=== PATIENT | male | born 1980 | race Caucasian/White ===

== ENCOUNTER → 2024-12-26 | Outpatient (CLI) | payer BC, SELFPAY ==
--- NOTE | 2024-12-26 10:47 | XR_ITS ---
Examination: Cervical spine 3 views Technique one AP lateral coned AP odontoid cervical spine 3 views Exam date and time: December 26, 2024 1105 hours INDICATIONS: Left-sided neck pain radiating to the left shoulder beginning 5 years ago getting worse. FINDINGS: Adequate alignment cervical vertebral bodies. No cervical fracture. Intact odontoid Moderate disc narrowing C6-C7 IMPRESSION: No cervical fracture Moderate disc narrowing C6-C7
== END | disposition home or self-care (01) ==
PROVIDERS: PCP Nurse Practitioner Family; Referring Provider Nurse Practitioner Family; Visit Provider Nurse Practitioner Family
DX: M48.02 Spinal stenosis, cervical region (principal)
CPT/HCPCS: 72040

== ENCOUNTER 2025-07-30 19:36 | Emergency (ER) | payer BC, SELFPAY ==
[2025-07-30 19:39] VITALS: BP 120/80; PULSE 78; RESP 19; TEMP 36.6; O2SAT 95; BMI 29.8
[2025-07-30 19:50] VITALS: PULSE 82; RESP 20; O2SAT 99; BMI 65.8
[2025-07-30 20:03] VITALS: BP 125/91; PULSE 85; RESP 19; TEMP 36.6; O2SAT 97
--- NOTE | 2025-07-30 20:04 | PD.EDNV ---
Nausea/Vomit./Diarrhea-RME/HPI General Chief complaint: Nausea/Vomiting/Diarrhea Stated complaint: NAUSEA VOMITING Time Seen by Provider: 07/30/25 20:06 Arrival date/time: 07/30/25 19:36 RME / HPI RME / HPI Narrative: See MDM for Dr. Gonzales's HPI documentation. Related Data Allergies Allergy/AdvReac Type Severity Reaction Status Date / Time No Known Allergies Allergy Verified 07/30/25 19:50 Review of Systems Review of Systems Systems Reviewed: All systems reviewed, normal except as documented Past Medical History Social History SMOKING STATUS: Never smoker ED Exam Narrative Physical exam: See MDM for Dr. Gonzales's physical exam documentation. Course Quality Measures none Orders Category Date Time Status Bedside COVID-19 Antigen Test NOW Care 07/30/25 20:06 Active Bedside Influenza A&B Antigen Test NOW Care 07/30/25 20:06 Completed EKG (ED ONLY) *Do not use* NOW Care 07/30/25 20:07 Completed MRI Screening NOW Care 07/31/25 01:24 Active Miscellaneous Nursing Order NOW Care 07/31/25 00:06 Active Saline [Insert IV] NOW Care 07/30/25 20:[address] head/brain wo con Stat Exams 07/30/25 20:07 Completed EKG (ED Only) Stat Exams 07/30/25 20:07 Ordered MR head/brain wo con Stat Exams 07/31/25 Ordered XR chest 1V portable Stat Exams 07/30/25 20:07 Completed Alcohol, Blood Medical Stat Lab 07/30/25 20:09 Completed Bilirubin,Direct Stat Lab 07/30/25 20:09 Completed CBC Stat Lab 07/30/25 20:09 Completed CMP [Comprehensive Metabolic Panel] Stat Lab 07/30/25 20:09 Completed Drug Screen,Urine Stat Lab 07/30/25 22:34 Completed Magnesium Stat Lab 07/30/25 20:09 Completed TSH [Thyroid Stimulating Hormone] Stat Lab 07/30/25 20:09 Completed Troponin I Stat Lab 07/30/25 20:09 Completed UA, C/S IF [Urinalysis, C/S if Indicated] Stat Lab 07/30/25 22:34 Completed Diazepam Inj [Valium Inj] Med 07/31/25 02:07 Discontinued 5 mg IVP X1 ONE KCL 10% Liq UDC 15 ML Med 07/30/25 21:40 Discontinued 40 meq PO X1 ONE Meclizine HCl [Antivert] Med 07/30/25 20:06 Discontinued 25 mg PO X1 ONE Ondansetron Inj [Zofran Inj] Med 07/30/25 20:06 Discontinued 4 mg IVP X1 ONE Ondansetron Inj [Zofran Inj] Med 07/31/25 02:07 Discontinued 4 mg IVP X1 ONE Ringers Lactated 1000 ml [Lactated Ringers] 1,000 ml Med 07/30/25 22:04 Discontinued IV 1,000 mls/hr Ringers Lactated 1000 ml [Lactated Ringers] 1,000 ml Med 07/31/25 02:07 Active IV 200 mls/hr Scopolamine [Transderm-Scop Patch] Med 07/30/25 20:06 Discontinued 1 mg TOP X1 ONE Sodium Chloride 0.9% 1000 ml [Ns] 1,000 ml Med 07/30/25 20:06 Discontinued IV 999 mls/hr Vital Signs Vital signs: Vital Signs Temperature 97.9 F 07/30/25 19:39 Pulse Rate 78 07/30/25 19:39 Respiratory Rate 19 07/30/25 19:39 Blood Pressure 120/80 07/30/25 19:39 Pulse Oximetry (%) 95 07/30/25 19:39 Oxygen Delivery Method Room Air 07/30/25 19:39 Nausea/Vomiting/Diarrhea MDM Narrative MDM Narrative:: This section includes all my notes and documentations, including HPI, PE, and ED course. Laron Gonzales MD HPI: 44yo male BIBA here with dizziness, nausea, and vomiting for the last couple hours. Patient was working out when those symptoms started. Describes feeling drunk and seasick and passed out. Also reports feeling off balance when ambulating. No remarkable past medical history. No other complaints. ROS: All negative except as documented in HPI. Physical Exam: General:? Alert and oriented.? Appearance of severe malaise noted. Eyes:? Conjunctivae and lids clear.? EOMI.? PERRL. ENT:? No nasal congestion.? Pharynx normal.? Tympanic membrane normal bilaterally.??? Neck:? Supple.? No carotid bruit.? No JVD.?? Heart:? RRR.? Lungs:? No respiratory distress.? Good air movement.? No rhonchi, wheezing, rales.?? Abdomen:? Soft and nontender.? Normal bowel sounds.? No distension.? No rebound or guarding.?? Legs:? No clubbing, cyanosis, edema.? Skin:? Warm and dry.?? Neuro:? Alert and oriented X 3.? Cranial Nerves II-XII grossly intact.? No peripheral motor deficits. I reviewed EMS notes. I reviewed all diagnostic test results. My interpretation of the EKG is sinus rhythm with no ST-T changes. My interpretation of the chest x-ray is NAD. My review of the CT head report is NAD. Blood tests are unremarkable except for K 3.2. At this point, diagnoses include: Vertigo Ataxia Treatment here included: IV fluid and Zofran Meclizine 25 mg Scopolamine patch Oral KCl Pascual maneuver No improvement noted. I discussed the case with our teleneurologist. About the presentation and exam and diagnostics and treatments here. Recommended MRI imaging. Brain MRI ordered. More IV fluid and diazepam 5 mg IV ordered. At 6 AM on 07/31/2025, the care of the patient was transferred to Dr. Hermosillo. Laron Gonzales MD Patient data External records reviewed:: [facility] previous records (Per chart review, patient has no previous ED visits or admissions to this facility.) and EMS form Clinical information provided by:: patient Social determinants that could affect healthcare access:: none Patient has the following chronic illnesses:: none How is presenting disease/condition affected by chronic disease/condition?: no chronic disease Evaluation data The following diagnostics were reviewed and interpreted by me:: lab results, radiology exam(s) and EKG tracing(s) (My interpretation of the EKG: NSR (66 bpm) with no ST-T changes. Laron Gonzales MD) Lab and/or radiology exams considered but not ordered:: none Interpretation Summary: I reviewed all diagnostic test results. My interpretation of the EKG is sinus rhythm with no ST-T changes. My interpretation of the chest x-ray is NAD. My review of the CT head report is NAD. Blood tests are unremarkable except for K 3.2. Medications / Prescriptions Medications / Prescriptions considered but not ordered:: none Medication administrations:: Medication Administration History Lactated Ringer's (Lactated Ringers) 1,000 mls @ 200 mls/hr IV .Q5H ONE Stop: 07/31/25 07:06 Last Admin: 07/31/25 02:16 Dose: 200 mls/hr Documented By: DT Discontinued Medications Diazepam (Diazepam Inj 5 Mg/Ml Vial 2 Ml) 5 mg IVP X1 ONE Stop: 07/31/25 02:08 Last Admin: 07/31/25 02:21 Dose: 5 mg Documented By: DT Sodium Chloride (Ns) 1,000 mls @ 999 mls/hr IV .Q1H1M ONE Stop: 07/30/25 21:06 Last Infusion: 07/30/25 21:23 Dose: Infused Documented By: Admin: 07/30/25 20:22 Dose: 999 mls/hr Documented By: DT Lactated Ringer's (Lactated Ringers) 1,000 mls @ 1,000 mls/hr IV .Q1H ONE Stop: 07/30/25 23:03 Last Infusion: 07/30/25 23:57 Dose: Infused Documented By: Admin: 07/30/25 22:36 Dose: 1,000 mls/hr Documented By: DT Meclizine HCl (Meclizine Hcl 25 Mg Tablet) 25 mg PO X1 ONE Stop: 07/30/25 20:07 Last Admin: 07/30/25 20:20 Dose: 25 mg Documented By: DT Ondansetron HCl (Ondansetron Inj 2 Mg/Ml Inj 2 Ml) 4 mg IVP X1 ONE; Protocol Stop: 07/30/25 20:07 Last Admin: 07/30/25 20:23 Dose: 4 mg Documented By: DT Ondansetron HCl (Ondansetron Inj 2 Mg/Ml Inj 2 Ml) 4 mg IVP X1 ONE; Protocol Stop: 07/31/25 02:08 Last Admin: 07/31/25 02:14 Dose: 4 mg Documented By: DT Potassium Chloride (Potassium Chloride 10% 20 Meq/15 Ml Udc) 40 meq PO X1 ONE Stop: 07/30/25 21:41 Scopolamine (Scopolamine 1 Mg Tdsy) 1 mg TOP X1 ONE Stop: 07/30/25 20:07 Last Admin: 07/30/25 20:20 Dose: 1 mg Documented By: DT Treatment here included: IV fluid and Zofran Meclizine 25 mg Scopolamine patch Oral KCl Pascual maneuver No improvement noted. More IV fluid and diazepam 5 mg IV ordered. Consultations Consultation(s) initiated? (list below): No Diagnosis Nausea Differential Diagnosis: gastroenteritis, dehydration and other (CVA, TIA, vertigo, electrolyte abnormalities, psychogenic) Most likely diagnosis given after review of the tests above:: Vertigo and ataxia Admission Indicated Admission indicated?: not indicated Explain why admission is indicated or not indicated:: MRI imaging pending. Admission Request Was there a request for admission?: No Disposition Plan Disposition Plan: other (specify) (Signed out to Dr. Hermosillo at 6 AM.) Discharge Plan Prescriptions/Referrals Referrals: No Primary/Family,Physician [Primary Care Provider] - In 1 week Problem List Clinical Impression: Vertigo, Ataxia Patient/Caregiver Discharge Instructions Print Language: Irish
--- NOTE | 2025-07-30 20:07 | XR_ITS ---
Examination: AP chest single view. Technique: AP portable upright chest single view Date and time: July 30, 20252010 hrs. Indications: Nausea vomiting diarrhea shortness of breath today. Findings: Minor atelectasis left base Minor prominence left ventricle. No pneumonia or pulmonary edema. Impression: No pneumonia or pulmonary edema.
--- NOTE | 2025-07-30 20:07 | XR_ITS ---
Examination: CT brain head without contrast. 2-D sagittal coronal reconstructions Date and time of exam:July 30, 20252030 hrs. Indications: Syncopal episode today followed by headache and dizziness CTDI: vol (mGy):51.6. DLP: (mGycm):1000 Technique: Multiple CT axial sections of the brain have been obtained, 5 mm slice thickness. Contrast has not been administered. 2-D sagittal, coronal reconstructions have been obtained Low dose protocols were performed. One or more of the following dose reduction techniques were used; automated exposure control, adjustment of the mA and/or KV according to patient size, use of iterative reconstruction technique. Findings: No significant ventricular enlargement. Intra-axial or extra-axial hemorrhage density is not seen. No mass effect or midline shift Basal cisterns are not remarkable. Fourth ventricle is midline. Cranial vault intact. Impression: Negative for acute hemorrhage, mass effect or midline shift Advise clinical correlation follow-up accordingly.
[2025-07-30] MEDS: MECLIZINE HCL 25 MG TABLET PO (20:20)
[2025-07-30] MEDS: SCOPOLAMINE 1 MG TDSY TOP (20:20)
[2025-07-30] MEDS: SODIUM CHLORIDE 0.9% 1000 ML 1,000 ML 999 ML IV (20:22)
[2025-07-30] MEDS: ONDANSETRON INJ 2 MG/ML INJ 2 ML 4 MG IVP (20:23)
[2025-07-30 20:53] LABS: Basophils # (Auto) 0.0 Thou/mm3 (0.0-0.2); Basophils % (Auto) 0 % (0-2.5); Eosinophils # (Auto) 0.1 Thou/mm3 (0.0-0.5); Eosinophils % (Auto) 1 % (0-10); Hematocrit 43.7 % (41.0-53.0); Hemoglobin 14.9 g/dL (13.5-16.0); Immature Granulocytes Auto 0.05 Thou/mm3 (0.00-0.00); Lymphocytes # (Auto) 2.4 Thou/mm3 (1.0-4.8); Lymphocytes % (Auto) 19 % (10-50); Mean Corpuscular HGB Conc 34.1 g/dl (31.0-37.0); Mean Corpuscular Hemoglobin 30.8 pg (25.0-35.0); Mean Corpuscular Volume 91 fL (80-100); Monocytes # (Auto) 0.8 Thou/mm3 (0.0-0.8); Monocytes % (Auto) 6 % (0-12); Neutrophils # (Auto) 9.7 Thou/mm3 (1.8-7.7); Neutrophils % (Auto) 74 % (37-80); Nucleated Red Blood Cell # 0.00 Thou/mm3 (0.00-0.00); Nucleated Red Blood Cell % 0 /100 WBC (0); Platelet Count 236 Thou/mm3 (140-440); RDW Standard Deviation 46.0 fL (35.1-43.9); Red Blood Count 4.83 Miln/mm3 (4.50-5.90); White Blood Count 13.1 Thou/mm3 (3.8-10.6)
[2025-07-30 21:18] LABS: Alanine Aminotransferase 31 U/L (10-49); Albumin, Serum 4.2 gm/dL (3.5-5.0); Albumin/Globulin Ratio 1.6 (1.2-2.2); Alcohol, Blood Medical < 3.0 mg/dL (0-10.0); Alkaline Phosphatase 49 U/L (46-116); Anion Gap 11 (7-16); Aspartate Amino Transferase 33 U/L (0-34); BUN/Creatinine Ratio 10 Ratio (12-20); Bilirubin,Direct 0.1 mg/dL (0.0-0.3); Bilirubin,Total 0.4 mg/dL (0.3-1.2); Blood Urea Nitrogen 10 mg/dL (9-23); Calcium 9.0 mg/dL (8.3-10.6); Calcium (Corrected) 9.0 mg/dL (8.5-10.1); Carbon Dioxide 27.4 mMol/L (20.0-31.0); Chloride 105 mMol/L (98-107); Creatinine (Component) 1.0 mg/dL (0.6-1.3); Estimated Creatinine Clearance 152.8 mL/min (>60); Globulin 2.6 gm/dL (2.3-3.5); Glucose 95 mg/dL (74-106); Magnesium 1.6 mg/dL (1.6-2.6); Osmolality,Calculated 283 (275-295); Potassium 3.2 mMol/L (3.4-5.1); Sodium 143 mMol/L (136-145); Thyroid Stimulating Hormone 0.63 uIU/mL (0.55-4.78); Total Protein 6.8 gm/dL (5.7-8.2); Troponin I < 0.020 ng/mL (0.0-0.045); eGFR > 60 See Note
[2025-07-30 21:45] VITALS: BP 117/77; PULSE 80; RESP 18; TEMP 36.5; O2SAT 95
[2025-07-30] MEDS: RINGERS LACTATED 1000 ML 1,000 ML IV (22:36)
[2025-07-30 22:47] LABS: Collection Type, Urine Clean Catch
[2025-07-30 22:51] LABS: Bilirubin,Urine Negative (Negative); Blood,Urine Negative (Negative); Clarity,Urine Clear (Clear/Hazy); Color,Urine Lt-Yellow (Lt Yel-Yel); Culture Indicated,Urine Not Indicated; Glucose, Urine Negative (Negative); Ketones,Urine 1+ (Negative); Leukocyte Esterase,Urine Negative (Negative); Nitrite,Urine Negative (Negative); PH,Urine 6.0 (5.0-7.0); Protein,Urine Negative (Neg - Trace); RBC,Urine < 1 /hpf (0-3); Specific Gravity,Urine 1.025 (1.001-1.035); Squamous Epithelial Cell,Urine < 1 /hpf (0-5); Urobilinogen,Urine Negative mg/dL (0.0-1.0); WBC,Urine 1 /hpf (0-5)
[2025-07-30 22:59] LABS: Amphetamine/Methamp Scrn,U Negative (Negative); Barbiturate Screen,Urine Negative (Negative); Benzodiazepines Screen,Urine Negative (Negative); Benzoylecgonine Screen, Ur Negative (Negative); Fentanyl Screen,Urine Negative (Negative); Opiate Screen,Urine Negative (Negative); THC Screen,Urine Negative (Negative)
[2025-07-30 23:56] VITALS: BP 118/63; PULSE 92; RESP 14; TEMP 37; O2SAT 99
--- NOTE | 2025-07-31 | XR_ITS ---
Examination: MRI brain without intravenous contrast. Date and time of exam: July 31, 2025 0707 hours INDICATIONS: Vomiting diarrhea and nausea syncopal episodes beginning last night Technique: Multiple axial and sagittal images of the brain obtained. Siemens high-resolution 1.5 Jeri short bore scanners utilized. Sagittal sections, T1-weighted, TR 500, TE 14, are performed. Axial sections proton-density and T2-weighted have been obtained. Inversion recovery axial images, TR 9, 260, TE 111, TI 2500. Diffusion weighted images, axial sections, TR 4800, TE 128, B value 1000 Axial sections, ADC map, TR 4800, TE 128 Findings: Enlargement of the sella turcica is not present. The optic chiasm and infundibular are not remarkable. Prepontine and interpeduncular cisterns are not enlarged. There is no localized enlargement of the medulla or jah. Fourth ventricle and cerebellar tonsils appear normal in position. No subacute area of hemorrhage density is seen. Mass in the cerebellopontine angle region is not evident. Globes symmetrical. Orbital musculature including medial lateral rectus muscles do not exhibit abnormality. Diffusion-weighted images demonstrate no focus of restricted diffusion. Increased white matter signal not seen Mass effect upon the ventricular system is not identified. Impression: Negative for acute hemorrhage mass effect or midline shift No acute infarct. No MR findings diagnostic for demyelinating disease
[2025-07-31 01:00] VITALS: BP 125/85; PULSE 85; RESP 14; TEMP 37; O2SAT 99
--- NOTE | 2025-07-31 01:16 | ESCONSULT_ITS ---
Tele Neuro Consultation Consultation Date 07/31/25 Most Recent Vital Signs Last Vital Signs Temp 98.6 F 07/30/25 23:56 Pulse 92 07/30/25 23:56 Resp 14 07/30/25 23:56 BP 118/63 07/30/25 23:56 Pulse Ox 99 07/30/25 23:56 O2 Del Method Room Air 07/30/25 23:56 Consultation Narrative [facility] TeleNeurology Consult Services Stat Consult Patient Name:???PAYTON YOUNG Date of :???1980 Identification Number:??? Date of Service:???07/31/2025 00:05:31 Diagnosis:?R42 - Dizziness/ Vertigo/ Giddiness Impression This consult was conducted in real-time using interactive audio and video technology. Patient was informed of the technology being used for this visit and agreed to proceed. Patient located in hospital and provider located at home/office setting. This is a 44 year old M with no significant past medical history who presents to [place], [place] for complaints of vertigo and ataxia. Symptoms began at about 5:30 PM on 07/30/25 (about 7 hours ago). Despite initial management in the ED, his symptoms have not resolved fully, though they are improving. The patient reports that he jumped out of a plane on Tuesday, two days prior to the onset of his current symptoms. Today while at the gym doing various exercises he had sudden onset of symptoms. He notes that his vertigo and ataxia worsen with movement. Additionally, he reports experiencing nystagmus and vomiting, which also worsen with movement. A computed tomography scan of the head was performed and found to be negative for acute pathology. At this time he states he feels ok if he closes his eyes and lays very still. His symptoms are better now than when he first arrived. With worsening with movements, symptoms are most suggestive of BPPV. Cerebellar stroke could be considered, although does not explain worsening with movement well and he does not have risk factors for such, so at this time overall statistically less suspected. He is outside the tPA/TNK time window. Recommendat ions below. Recommendations: - Perform [place]-Hallpike maneuver and if positive perform Pascual maneuver. Physical therapy can assist if needed. - PRN ondansetron and meclizine. - If symptoms persist, MRI Brain without contrast (routine, diagnostic) to evaluate for possible small posterior circulation (cerebellar) stroke. - If the patient worsens clinically, such as an increase of NIHSS by 2 or more points, new focal findings arise, or other, or if new pertinent medical history becomes available that was previously unavailable and may change neurologic care, please update Neurology at and update the primary team. Metrics: Dispatch Time: 07/31/2025 00:05:31 Callback Response Time: 07/31/2025 03:06:00 Primary Provider Notified of Diagnostic Impression and Management Plan on: 07/31/2025 01:15:28 CT HEAD: I personally reviewed all the CT images that were available to me and it showed:?no acute pathology Chief Complaint: vertigo and ataxia History of Present Illness:Patient is a 44 year old Male. This consult was conducted in real-time using interactive audio and video technology. Patient was informed of the technology being used for this visit and agreed to proceed. Patient located in hospital and provider located at home/office setting. This is a 44 year old M with no significant past medical history who presents to [place], [place] for complaints of vertigo and ataxia. Symptoms began at about 5:30 PM on 9/2/25 (about 7 hours ago). Despite initial management in the ED, his symptoms have not resolved fully, though they are improving. The patient reports that he jumped out of a plane on Tuesday, two days prior to the onset of his current symptoms. Today while at the gym doing various exercises he had sudden onset of symptoms. He notes that his vertigo and ataxia worsen with movement. Additionally, he reports experiencing nystagmus and vomiting, which also worsen with movement. A computed tomography scan of the head was performed and found to be negative for acute pathology. At this time he states he feels ok if he closes his eyes and lays very still. His symptoms are better now than when he first arrived. Past Medical History: ?There is no history of Stroke Medications: No Anticoagulant use? No Antiplatelet use Reviewed EMR for current medications Allergies:? Reviewed Social History: Drug Use: No Family History: There is no family history of premature cerebrovascular disease pertinent to this consultation ROS : 14 Points Review of Systems was performed and was negative except mentioned in HPI. Past Surgical History: There Is No Surgical History Contributory To Today?s Visit Examination: BP(118/63),?Pulse(92), 1A: Level of Consciousness - Alert; keenly responsive?+ 0 1B: Ask Month and Age - Both Questions Right?+ 0 1C: Blink Eyes & Squeeze Hands - Performs Both Tasks?+ 0 2: Test Horizontal Extraocular Movements - Normal?+ 0 3: Test Visual Navas - No Visual Loss?+ 0 4: Test Facial Palsy (Use Grimace if Obtunded) - Normal symmetry?+ 0 5A: Test Left Arm Motor Drift - No Drift for 10 Seconds?+ 0 5B: Test Right Arm Motor Drift - No Drift for 10 Seconds?+ 0 6A: Test Left Leg Motor Drift - No Drift for 5 Seconds?+ 0 6B: Test Right Leg Motor Drift - No Drift for 5 Seconds?+ 0 7: Test Limb Ataxia (FNF/Heel-Kimble) - No Ataxia?+ 0 8: Test Sensation - Normal; No sensory loss?+ 0 9: Test Language/Aphasia - Normal; No aphasia?+ 0 10: Test Dysarthria - Normal?+ 0 11: Test Extinction/Inattention - No abnormality?+ 0 NIHSS Score:?0 Spoke with :?ed provider This consult was conducted in real time using interactive audio and video technology. Patient was informed of the technology being used for this visit and agreed to proceed. Patient located in hospital and provider located at [facility]/office setting. Patient is being evaluated for possible acute neurologic impairment and high probability of imminent or life - threatening deterioration.I spent total of 35 minutes providing care to this patient, including time for face to face visit via telemedicine, review of medical records, imaging studies and discussion of findings with providers, the patient and / or family. Dr Darius Garcia [facility] For Inpatient follow-up with [facility] physician please call [facility] at . As we are not an outpatient service for any post hospital discharge needs please contact the hospital for assistance. If you have any questions for the [facility] physicians or need to reconsult for clinical or diagnostic changes please contact us via [facility] at . Signature :Waldemar Garcia
[2025-07-31] MEDS: ONDANSETRON INJ 2 MG/ML INJ 2 ML 4 MG IVP (02:14)
[2025-07-31] MEDS: RINGERS LACTATED 1000 ML 1,000 ML 200 ML IV (02:16)
[2025-07-31] MEDS: DIAZEPAM INJ 5 MG/ML VIAL 2 ML IVP (02:21)
[2025-07-31] MEDS: POTASSIUM CHL 10 mEq IVPB 10 MEQ/100 ML BAG 100 MEQ IV ×2 (03:37→04:46)
[2025-07-31 04:40] VITALS: BP 113/68; PULSE 56; RESP 19; TEMP 36.6; O2SAT 97
[2025-07-31 06:00] VITALS: BP 124/85; PULSE 80; RESP 14; TEMP 37; O2SAT 99
[2025-07-31 08:12] VITALS: BP 116/64; PULSE 90; RESP 16; TEMP 36.7; O2SAT 95
[2025-07-31 10:36] VITALS: BP 115/67; PULSE 99; RESP 16; O2SAT 96
--- NOTE | 2025-07-31 10:36 | EDNOTE_ITS ---
Emergency Room Addendum Addendum Narrative: 0600: Care assumed from Dr. Gonzales, the previous shift emergency physician. Past medical, surgical, social and family history reviewed. Vitals and home medications reviewed. I will assume the care of the patient at this time, pending MRI head and final disposition. Please refer to the emergency department record for history and examination from initial visit.?The following addendum documentation note is intended to reflect any pending information, findings, or radiology results not included in the patient?s initial chart. 1025: Patient reports feeling improved after IV fluids, Zofran and Meclizine. Will send the patient home with a prescription for Zofran and Meclizine. RADIOLOGY Ordering Physician: Laron Gonzales MD Date of Service: 07/31/25 Procedure(s): MR head/brain wo con Accession Number(s): [id number] cc: Laron Gonzales MD; Dereck Win MD; NO PRIMARY/FAMILY,PHYSICIAN~ Examination: MRI brain without intravenous contrast. Date and time of exam: July 31, 2025 0707 hours INDICATIONS: Vomiting diarrhea and nausea syncopal episodes beginning last night Technique: Multiple axial and sagittal images of the brain obtained. Siemens high-resolution 1.5 Jeri short bore scanners utilized. Sagittal sections, T1-weighted, TR 500, TE 14, are performed. Axial sections proton-density and T2-weighted have been obtained. Inversion recovery axial images, TR 9, 260, TE 111, TI 2500. Diffusion weighted images, axial sections, TR 4800, TE 128, B value 1000 Axial sections, ADC map, TR 4800, TE 128 Findings: Enlargement of the sella turcica is not present. The optic chiasm and infundibular are not remarkable. Prepontine and interpeduncular cisterns are not enlarged. There is no localized enlargement of the medulla or jah. Fourth ventricle and cerebellar tonsils appear normal in position. No subacute area of hemorrhage density is seen. Mass in the cerebellopontine angle region is not evident. Globes symmetrical. Orbital musculature including medial lateral rectus muscles do not exhibit abnormality. Diffusion-weighted images demonstrate no focus of restricted diffusion. Increased white matter signal not seen Mass effect upon the ventricular system is not identified. Impression: Negative for acute hemorrhage mass effect or midline shift No acute infarct. No MR findings diagnostic for demyelinating disease Dictated By: Dereck Win MD Signed By: <Electronically signed by Derekc Win MD in [place]> 07/31/25 0932
== END 2025-07-31 10:36 | disposition home or self-care (01) ==
PROVIDERS: Emergency Medicine; Emergency Provider Emergency Medicine
DX: R42 Dizziness and giddiness (principal); R51.9 Headache, unspecified; R55 Syncope and collapse; R11.2 Nausea with vomiting, unspecified; R19.7 Diarrhea, unspecified; R06.02 Shortness of breath; I49.8 Other specified cardiac arrhythmias
CPT/HCPCS: 36415; 70450; 70551; 71045; 80053; 80307; 80320; 81001; 82248; 83735; 84443; 84484; 85025; 87400; 87811; 93005; 96361; 96365; 96366; 96375; 96376; 99284; J2405; J3360; J3480; J7030; J7120; A9270; G0480

== ENCOUNTER → 2025-09-19 | Outpatient (CLI) | payer BC, SELFPAY ==
--- NOTE | 2025-09-19 15:45 | XR_ITS ---
Examination: MRI cervical spine without intravenous contrast Date and time of exam: September 19, 2025, 1749 hours INDICATIONS: Left-sided neck pain radiating to the left down the left arm and shoulder for years Technique: Multiple axial and sagittal sections of the cervical spine to been obtained. T2 weighted sagittal sections, TR 3, 270, TE 117 T1-weighted sagittal sections, TR 500, TE 11 T1-weighted axial sections, TR 607, TE 12, axial sections TR 18, TE 27 and T2 weighted transverse sections, TR 3920, TE 122. Findings: Adequate limited cervical vertebral bodies No cervical fracture Mild disc narrowing C6-C7 Diffuse cervical disc desiccation No localized enlargement of cervical cord C2-C3 mild right moderate left neural foraminal stenosis C3-C4 uncinate process hypertrophy with advanced bilateral neural foraminal stenosis C4-C5 uncinate hypertrophy with advanced bilateral neural foraminal stenosis C5-C6 2 mm central osteophyte disc complex, advanced bilateral neuroforaminal stenosis C6-C7 4 mm right paracentral disc with moderate right and advanced left neural foraminal stenosis C7-T1 moderate right neural foraminal stenosis IMPRESSION: C3-C4, C4-C5, C5-C6 advanced bilateral neural foraminal stenosis C6-C7 4 mm right paracentral disc with moderate right and advanced left neural foraminal stenosis
== END | disposition home or self-care (01) ==
LOC: SMRI 15:44
PROVIDERS: PCP Nurse Practitioner Family; Referring Provider Nurse Practitioner Family; Visit Provider Nurse Practitioner Family
DX: M48.02 Spinal stenosis, cervical region (principal)
CPT/HCPCS: 72141